=== PATIENT | female | born 1970 | race Caucasian/White ===

== ENCOUNTER 2017-04-12 17:43 | Emergency (ER) | payer BC ==
[~2017-04-12] VITALS: Ht 157.5 cm; Wt 101.2 kg
[~2017-04-12 17:43] MED LIST: BUTA1CAP17 PO; IRBE1TAB48 PO; OXYC5TAB PO
[2017-04-12 17:52] VITALS: TEMP 36.6; Ht 157.5 cm; Wt 101.2 kg
[2017-04-12] MEDS ORDERED: PROPARACAINE HCL 0.5% OP SOLN 15 ML BTL OP STA (18:21)
--- NOTE | 2017-04-12 18:56 | EMERGENCY ROOM VISIT NOTE ---
History First contact with patient: 18:02 Chief Complaint: EYE ASSESSMENT Stated Complaint: R EYE IRRITATION History of Present Illness The patient is a 46 year old female who presents to the Emergency Room with complaints of right eye irritation. The patient states that she has had some burning and irritation of the right eye since this morning. She initially thought this may be secondary to allergies. She states that she remove her contacts but the symptoms persisted. She has had watery discharge from the eye and a foreign body sensation. She states her vision has been slightly blurred, but overall seems normal. She denies any injury to the eye. She denies any previous issues with eye. She rates her discomfort a 5/10. Review of Systems A complete 10 point review of systems was reviewed with the patient with pertinent positives and negatives as per history of present illness. All else were negative. Past Medical/Surgical History Medical Problems: (1) Asthma (2) HYPERTENSION NOS Social History Smoking Status: Never Smoker Alcohol Use: occasionally Housing Status: lives with family Current/Historical Medications Scheduled Hydrochlorothiazide (Hydrochlorothiazide), 1 TAB PO DAILY Irbesartan (Irbesartan), 150 MG PO BID Scheduled PRN Ijadolvmen-Nptehlzoftple-Bihma (Fioricet), 1 CAPSULE PO Q8 PRN for Headache Physical Exam Vital Signs Date Time Temp Pulse Resp B/P (MAP) Pulse Ox O2 Delivery O2 Flow Rate FiO2 04/12/17 19:13 78 20 168/77 99 04/12/17 17:52 36.6 86 20 174/103 98 Room Air Right Eye Acuity: 20/40 w/glasses Left Eye Acuity: 20/20 w/glasses Physical Exam VITALS: Vitals are noted on the nurse's note and reviewed by myself. Vital signs stable. GENERAL: This is a 46-year-old female, in no acute distress, nondiaphoretic, well-developed well-nourished. EYES: Visual acuity as noted above. Pupils equal round and reactive to light and accommodation. Mild right conjunctival injection. EOMs intact. There is minimal uptake of fluorescein stain is served under the ultraviolet light over the right cornea consistent with contact lens abrasion/irritation. No foreign bodies visible. NEURO: Patient was alert and oriented to person place and time. Medical Decision & Procedures Medications Administered Medications (Trade) Dose Ordered Sig/Dhruv Route Start Time Stop Time Status Last Admin Dose Admin Ciprofloxacin HCl (Ciprofloxacin 0.3% Op Soln) 2 drops Q4H ONCE OP 04/12/17 19:00 04/12/17 19:01 DC 04/12/17 19:13 2 DROPS Medical Decision Differential diagnosis includes corneal abrasion, corneal ulcer, corneal foreign body, among others. The patient was evaluated as above. Slit-lamp examination revealed findings consistent with a contact lens induced corneal abrasion of the right eye. Patient was placed on Ciloxan drops and instructed to follow-up with her primary care provider/osteopathic resident. She was advised to return for worsening or new/sitting symptoms. She verbalized understanding of my assessment and treatment plan and was discharged home in good condition. Medication Reconcilliation Current Medication List: was personally reviewed by me Blood Pressure Screening Patient's blood pressure: Elevated blood pressure Blood pressure disposition: Elevated BP felt to be situational Impression Primary Impression: Corneal abrasion due to contact lens Departure Information Dispostion Home / Self-Care Condition GOOD Patient Instructions My [facility] Additional Instructions You have been treated in the Emergency Department today for your Corneal Abrasion. You have been prescribed Ciloxan eye drops. This is an antibiotic which will help to prevent an infection from developing in your affected eye. You should use 2 drops in the affected eye every 2 hours while awake for the first 2 days, then every 4 hours for the remaining 5 days. This is a total of a 7-day course for these antibiotic eye drops. Do not wear contacts for the next 3-4 days or until your symptoms are completely gone. For pain control, you can use the following ylni-pzj-hsbtwku medicines (if >12 yo): - Regular strength (325mg/tab) Tylenol (acetaminophen) 2 tabs every 4-6 hours as needed. Do not exceed 12 tablets in a 24 hour period. Avoid taking more than 4 grams (4000 mg) of Tylenol per day. This includes any other sources of acetaminophen you may take on a regular basis. - Regular strength (200 mg/tab) Advil (ibuprofen) 1-2 tabs every 4-6 hours as needed. Do not exceed a dose of 3200 mg per day. You should relax in a quiet, dark place for the rest of the day. You should wear sunglasses while outside for the next few days until your eyes are not as sensitive to the light. You should schedule a follow-up appointment in 2-3 days with your Primary Care Provider or established Eye Doctor (Truck [employer] Helper) for further evaluation and treatment of your Corneal Abrasion. Return to the Emergency Department if your current symptoms worsen despite treatment course outlined above, or if you develop any of the following symptoms : intractable pain, visual disturbances, loss of vision, increased redness, swelling, drainage, or if you develop a fever. Problem Qualifiers Primary Impression: Corneal abrasion due to contact lens Laterality: right Qualified Codes: H18.821 - Corneal disorder due to contact lens, right eye
[2017-04-12] MEDS ORDERED: CIPROFLOXACIN HCL 0.3% OP SOLN 2.5 ML BTL OP ONE (19:00)
[2017-04-12] MEDS ORDERED: HYDR12.55 PO (19:10)
[2017-04-12 19:13] VITALS: BP 168/77; PULSE 78; O2SAT 99
== END 2017-04-12 19:18 | disposition home or self-care (01) ==
LOC: C.EDB 17:44 → C.EDD 19:18
DX: H18.821 Corneal disorder due to contact lens, right eye (principal); J45.909 Unspecified asthma, uncomplicated; I10 Essential (primary) hypertension

== ENCOUNTER 2017-07-14 00:15 | Emergency (ER) | payer BC ==
[~2017-07-14] VITALS: Ht 157.5 cm; Wt 96.7 kg
[~2017-07-14 00:15] MED LIST changes: +HYDR12.55 PO; -OXYC5TAB PO
[2017-07-14 00:20] VITALS: TEMP 36.8; Ht 157.5 cm; Wt 96.7 kg
[2017-07-14] MEDS ORDERED: ALBUT/IPRATROP 3MG/0.5MG NEB 3 ML VIAL INH STA (00:29)
[2017-07-14] MEDS ORDERED: PSEUDOEPHEDRINE HCL 30 MG TAB PO STA (00:29)
[2017-07-14] MEDS ORDERED: ALBUTEROL HFA 8 GM INHALER INH STA (01:19)
[2017-07-14 01:20] LABS: INFLUENZA B ANTIGEN Neg for Influ B (NEG)
[2017-07-14 01:27] VITALS: BP 145/90; PULSE 80; O2SAT 95
[2017-07-14] MEDS ORDERED: DEXAMETHASONE **PF** INJ 10 MG/ML VIAL PO ONE (01:30)
--- NOTE | 2017-07-14 01:39 | EMERGENCY ROOM VISIT NOTE ---
History First contact with patient: 00:25 Chief Complaint: ILLNESS Stated Complaint: SEVERE COUGHING,FEVER,STUFFY HEAD History of Present Illness The patient is a 46 year old female who presents to the Emergency Room with complaints of cough, congestion, fever, chills, myalgias and arthralgias for the past 2 days. No temperature was taken. No flu shot. Patient's been around sick people. Patient denies chest pain, dyspnea, abdominal pain, neck stiffness, sore throat, vomiting, diarrhea. She is tolerate by mouth fluids. Review of Systems See HPI for pertinent positives & negatives. A total of 10 systems reviewed and were otherwise negative. Past Medical/Surgical History Medical Problems: (1) Asthma (2) HYPERTENSION NOS Cholecystectomy Social History Smoking Status: Never Smoker Smokeless Tobacco Use: No Alcohol Use: occasionally Drug Use: none Marital Status: Housing Status: lives with family Occupation Status: employed Current/Historical Medications Scheduled Hydrochlorothiazide (Hydrochlorothiazide), 1 TAB PO DAILY Irbesartan (Irbesartan), 150 MG PO BID Scheduled PRN Urgzkognjv-Bqnhexqlcuqwf-Vjhom (Fioricet), 1 CAPSULE PO Q8 PRN for Headache Physical Exam Vital Signs Date Time Temp Pulse Resp B/P (MAP) Pulse Ox O2 Delivery O2 Flow Rate FiO2 07/14/17 01:27 80 20 145/90 95 07/14/17 00:20 36.8 86 20 167/94 96 Room Air Physical Exam VITALS: Vitals are noted on the nurse's note and reviewed by myself. Vital signs stable. GENERAL: Pleasant female, in no acute distress, nondiaphoretic, well-developed well-nourished. SKIN: The skin was without rashes, erythema, edema, or bruising. There is no tenting of the skin. Capillary reflex less than 2 seconds. HEAD: Normocephalic atraumatic. EARS: External auditory canals clear, tympanic membranes pearly lopez without erythema or effusion bilaterally. EYES: Pupils equal round and reactive to light and accommodation. Conjunctivae without injection, sclerae without icterus. Extraocular movements intact. NOSE: Patent, turbinates without inflammation or discharge. No sinus tenderness. MOUTH: Mucous membranes moist. Pharynx without erythema or exudate. Uvula midline. Airway patent. Tongue does not deviate. NECK: Supple without nuchal rigidity. No lymphadenopathy. No thyromegaly. Cervical spine is nontender. No JVD. No meningeal signs HEART: Regular rate and rhythm without murmurs gallops or rubs. LUNGS: Mild diffuse end expiratory wheezes, without rales or rhonchi. No dullness to percussion. No retractions or accessory muscle use. ABDOMEN: Positive bowel sounds x 4. Normal tympanic percussion. Soft, nontender, without masses or organomegaly. Bonilla sign negative. No guarding or rebound tenderness. MUSCULOSKELETAL: No muscle atrophy, erythema, or edema noted. NEURO: Patient was alert and oriented to person place and time. Normal sensation to light and sharp touch. No focal neurological deficits. Medical Decision & Procedures Laboratory Results Test 07/14/17 00:40 Influenza Type A (RT-PCR) Neg for Influ A (NEG) Influenza Type A Antigen Neg for Influ A (NEG) Influenza Type B Antigen Neg for Influ B (NEG) Influenza Type B (RT-PCR) POS for Influ B (NEG) Medications Administered Medications (Trade) Dose Ordered Sig/Dhruv Route Start Time Stop Time Status Last Admin Dose Admin Albuterol/ Ipratropium (Duoneb) 3 ml NOW STAT INH 07/14/17 00:29 07/14/17 00:30 DC 07/14/17 00:37 3 ML Pseudoephedrine HCl (Sudafed Tab) 60 mg NOW STAT PO 07/14/17 00:29 07/14/17 00:30 DC 07/14/17 00:36 60 MG Albuterol (Ventolin Hfa Inhaler) 2 puffs ONE STAT INH 07/14/17 01:19 07/14/17 01:20 DC 07/14/17 01:24 2 PUFFS Dexamethasone Sodium Phosphate (Dexamethasone Inj Pf) 10 mg NOW ONCE PO 07/14/17 01:30 07/14/17 01:31 DC 07/14/17 01:24 10 MG ED Course Prior records/ancillary studies reviewed. Triage Nursing notes reviewed. Additional history obtained from family. The patient's history was concerning for cold symptoms. Differential diagnosis: Etiologies such as viral syndrome, otitis, pharyngitis, pneumonia, influenza, meningitis, sepsis, bacteremia, as well as others were entertained. Physical examination: Patient is alert and mildly ill-appearing ER treatment provided: Nebulizer, Sudafed On reassessment the patient felt better. Diagnostics interpreted by me: The labs revealed negative rapid flu and PCR was positive for flu B. Patient was called at home and notified of this. Imaging studies: Chest x-ray with no acute consolidation, pneumothorax or free air per my dictation This appears to be consistent with bronchitis. Patient felt better after being medicated as above. No pneumonia. She was not retracting. She was not hypoxic. She is advised to take medications as directed, rest, stay well- hydrated and to follow-up family care in a few days or here in the ER sooner for high fevers, lethargy, difficulty breathing, worsening signs or symptoms or as needed.. By the evaluation outlined above emergent etiologies such as otitis , pharyngitis, pneumonia, meningitis, urinary tract infection, sepsis, bacteremia, as well as others were deemed relatively unlikely. The pt informed about the findings as listed above. All questions were answered and pleased with the treatment. Return instructions were outlined and the patient was discharged in stable condition. Case reviewed with my Attending Referral: The patient was referred back to their primary care physician for follow-up in 2 to 3 days for a recheck of the current condition. Medical Decision As above Medication Reconcilliation Current Medication List: was personally reviewed by me Blood Pressure Screening Patient's blood pressure: Elevated blood pressure Blood pressure disposition: Elevated BP felt to be situational Impression Primary Impression: Acute bronchitis Additional Impression: Influenza B Departure Information Dispostion Home / Self-Care Condition GOOD Forms WORK / SCHOOL INSTRUCTIONS, HOME CARE DOCUMENTATION FORM, Days off work : 3 Work Instructions, IMPORTANT VISIT INFORMATION Patient Instructions Bronchitis Acute, My [facility] Additional Instructions Acetaminophen(Tylenol) may be used for fever or pain. Use 1000mg every six hours as needed. Avoid using more than 3000mg in a 24 hour period. (AND/OR) Ibuprofen(Motrin, Advil) may be used for fever or pain. Use 600mg every six hours as needed. Take with food. Avoid using more than 2400mg in a 24 hour period. Do not use 2400mg per day for more than three consecutive days without physician direction. Prolonged inappropriate use can lead to stomach upset or ulcers. Afrin nasal spray: 2-3 sprays to each nostril twice daily as needed for congestion. Do not use for more than 3-4 days because it can lead to worsening rebound congestion. Pseudoephedrine(Sudaphed): 30-60mg every 6 hours as needed for nasal congestion. Do not take this with other stimulant products or supplements. Albuterol Inhaler: Take 2 puffs four times daily for seven days, then as needed. Rest and drink plenty of fluids. Controlling your fever with Tylenol and Ibuprofen as above will make you feel better. Wash your hands after nose blowing, sneezing, or coughing. Most germs are spread through contact, therefore improper hygiene may result in your close contacts and loved ones becoming ill just like you. Continue current medications. Return to the ER for severe headache, neck stiffness, chest pain, difficulty breathing, fevers, vomiting, worsening of your condition, or as needed. Follow up with your primary physician this week for a recheck of your current condition. Problem Qualifiers Primary Impression: Acute bronchitis Bronchitis organism: unspecified organism Qualified Codes: J20.9 - Acute bronchitis, unspecified
[2017-07-14 02:16] LABS: INFLUENZA A PCR Neg for Influ A (NEG)
[2017-07-14 02:17] LABS: INFLUENZA B PCR POS for Influ B (NEG)
--- NOTE | 2017-07-14 05:47 | DIAGNOSTIC IMAGING REPORT ---
CHEST 2 VIEWS ROUTINE CLINICAL HISTORY: cough/fever dyspnea COMPARISON STUDY: 06/04/2013 FINDINGS: The bones soft tissues and hemidiaphragms are normal. The cardiomediastinal silhouette is normal. The lungs are clear. The pulmonary vasculature is normal. IMPRESSION: Negative chest. The above report was generated using voice recognition software. It may contain grammatical, syntax or spelling errors. Electronically signed by: Sushant Dennis M.D. 07/14/2017 5:46 AM Dictated Date/Time: 07/14/2017 5:46 AM
--- NOTE | 2017-07-16 18:29 | Pharmacy Progress Note ---
ED Pharmacist Culture FollowUp Date of Service: Jul 16, 2017. Patient seen on 07/14. Positive Influenza B result. Patient attempted to be reached on 07/14 x 2 by nurse to give results- no answer. Called again today ~ 0620. No answer. Not able to leave a message.
--- NOTE | 2017-07-17 15:49 | Pharmacy Progress Note ---
ED Pharmacist Culture FollowUp Date of Service: Jul 17, 2017. I was able to get in touch with the patient and inform her of positive influenza B result.
== END 2017-07-14 01:28 | disposition home or self-care (01) ==
LOC: C.EDB 00:18
DX: J20.9 Acute bronchitis, unspecified (principal); J10.1 Influenza due to other identified influenza virus with other respiratory manifestations; I10 Essential (primary) hypertension